=== PATIENT | male | born 1965 | race Caucasian/White ===

== ENCOUNTER 2018-07-31 07:06 | Outpatient (CLI) | payer BC ==
--- NOTE | 2018-07-31 08:27 | ULT ---
RIGHT UPPER QUADRANT ULTRASOUND: 07/31/2018 HISTORY: Elevated liver function tests. FINDINGS: The liver, visualized portions of the IVC, gallbladder, and right kidney demonstrate a normal sonogra phic appearance. The right kidney measures 11.5 cm in length. The common duct measures 0.4 cm in di ameter, which is within normal limits. The pancreas is mostly obscured by bowel gas and is not well evaluated on this exam. IMPRESSION: Normal right upper quadrant ultrasound. No gallbladder calculi are seen, and the common duct is norm al in caliber. POS: [facility]
== END 2018-07-31 07:07 | disposition home or self-care (01) ==
LOC: SCSULT 07:06
PROVIDERS: ATTEND Family Medicine
DX: R79.89 Other specified abnormal findings of blood chemistry (principal)
CPT/HCPCS: 76705